=== PATIENT | female | born 1955 | race Caucasian/White ===

== ENCOUNTER 2016-04-26 12:07 | Inpatient (IN) | payer OTHER ==
[~2016-04-26] VITALS: Ht 162.6 cm; Wt 95.5 kg
[~2016-04-26 12:07] MED LIST: ADVAIR 500/501 DISK IH; ADVAIR HFA120 INHALA IH; ALPRAZOLAM0.25 M2 PO; ALTACE2.5 MG PO; ASPIR-LOW81 MG PO; ASPIRIN325 MG PO; ATORVASTATIN CA40 MG PO; ATROVENT 00.5 MG/2.5 IH; AUGMENTIN 875-1 EACH; AZOR 5/20 MG1 TABLET PO; Advair 500/50 Diskus IH; Augmentin PO; BENZONATATE100 MG PO; BROVANA15 MCG/2 M IH; CEFTIN500 MG PO; CEPHALEXIN500 MG PO; COMBIVENT200 INHALA IH; Combivent IH; DESYREL100 MG PO; DOXYCYCLINE HY100 MG PO; DUONEB 2.5-0.5 M3 ML AEROSOL; DUONEB 2.5-0.5 M3 ML IH; DuoNeb IH; ENDOCET 5-3251 EACH PO; EX-LAX15 MG PO; Ecotrin PO; FLORASTOR250 MG PO; FLOVENT 11120 INHALA IH; LAXATIVE5 M1 PO; LEVOFLOXACIN750 MG PO; LEXAPRO10 MG PO; LIPITOR40 MG PO; LO-DOSE ASPIRIN81 M1 PO; LOSARTAN POTASS50 MG PO; Levaquin PO; Lipitor PO; MUCINEX600 MG PO; NICOTINE PATCH1 EAC2 TD; OXYCODONE HCL10 MG PO; OXYCONTIN10 MG PO; OXYCONTIN15 MG PO; OxyCONTIN PO; PERCOCET 5/31 TABLET PO; PREDNISONE10 MG PO; PREDNISONE20 MG PO; PREDNISONE50 MG PO; PROAIR HFA8.5 GM IH; PROTONIX40 MG PO; Protonix PO; SINGULAIR10 MG PO; SPIRIVA RESPIMAT4 GM IH; Singulair PO; TRAMADOL HCL50 MG PO; TRAZODONE HCL100 MG PO; TRAZODONE HCL150 MG PO; Vancocin Oral Soluti PO; ZITHROMAX500 MG PO
[2016-04-26] MEDS ORDERED: TOBREX5 ML BOTH EYES (12:43)
[2016-04-26 14:53] LABS: CARBON DIOXIDE (BICARBONATE) 29.2 MEQ/L (20-31)
[2016-04-26 15:00] LABS: HEMATOCRIT 38.2 % (36.0-46.0); MCH 30.9 PG (29.0-34.0); MCHC 33.2 G/DL (30.0-36.0); MCV 92.9 FL (83-99); MEAN PLAT.VOLUME 9.4 uM^3 (9.5-12.4); PLATELET COUNT 190 K/uL (156-360); RBC DIS.WIDTH-CV 12.4 % (11.8-14.6); RBC DIS.WIDTH-SD 40.9 % (39-53); RED BLOOD COUNT 4.11 M/uL (3.80-5.20)
[2016-04-26 15:06] LABS: CHLORIDE 100 mEq/L (99-109); SODIUM 134 mEq/L (136-147)
[2016-04-26 15:07] LABS: GLUCOSE 177 mg/dL (70-99)
[2016-04-26 15:08] LABS: D-DIMER ELISA 0.49 mg/L FEU (< 0.57)
[2016-04-26 15:09] LABS: ANION GAP 11 MEQ/L (2-14)
[2016-04-26 15:11] LABS: GFR ESTIMATE (CALCULATED) > 59 mL/min/
[2016-04-26 15:12] LABS: UREA NITROGEN (BUN) 12 mg/dL (9-23)
[2016-04-26 15:19] LABS: TROP-I INTERPRETATION NEGATIVE; TROPONIN-I < 0.01 ng/mL (0.0-0.30)
[2016-04-26 16:40] LABS: ADD MIUA? YES; BILIRUBIN NEGATIVE; BLOOD TRACE; COLOR YELLOW ((YELLOW)); GLUCOSE (STRIP) NEGATIVE; KETONES TRACE; LEUKOCYTES NEGATIVE; NITRITE NEGATIVE; PROTEIN (STRIP) NEGATIVE; SPECIFIC GRAVITY 1.014 (1.000-1.030); UROBILINOGEN 0.2 MG/DL (0.2-1.0)
[2016-04-26 16:59] LABS: CASTS PRESENT /LPF; HYALINE CASTS 0-5 /LPF
[2016-04-26 17:01] LABS: BACTERIA RARE; CRYSTALS NONE SEEN; EPITHELIAL CELLS RARE; MUCUS RARE; RED BLOOD CELLS 0-5 /HPF (0-5); UCUL ADDED? NO; WHITE BLOOD CELLS 0-5 /HPF (0-5)
[2016-04-27] VITALS (7 sets, daily range): BP systolic 80–126; BP diastolic 30–78
[2016-04-27 05:03] LABS: INFLUENZA A VIRAL ANTIGEN NEGATIVE; INFLUENZA B VIRAL ANTIGEN NEGATIVE
[2016-04-27 06:23] LABS: HEMATOCRIT 36.8 % (36.0-46.0); MCH 30.6 PG (29.0-34.0); MCHC 32.6 G/DL (30.0-36.0); MCV 93.9 FL (83-99); MEAN PLAT.VOLUME 9.9 uM^3 (9.5-12.4); PLATELET COUNT 186 K/uL (156-360); RBC DIS.WIDTH-CV 12.5 % (11.8-14.6); RBC DIS.WIDTH-SD 42.8 % (39-53); RED BLOOD COUNT 3.92 M/uL (3.80-5.20); WHITE BLOOD COUNT 3.7 K/uL (4.1-10.2)
[2016-04-27 06:42] LABS: ANION GAP 8 MEQ/L (2-14); CHLORIDE 101 MEQ/L (99-109); GFR ESTIMATE (CALCULATED) > 59 mL/min/; GLUCOSE 146 mg/dL (70-99); SAMPLE HEMOLYSIS CHECK 0; SAMPLE ICTERIC CHECK 0; SAMPLE LIPEMIA CHECK 0; SODIUM 137 MEQ/L (136-147); UREA NITROGEN (BUN) 13 mg/dL (9-23)
[2016-04-27 06:49] LABS: POTASSIUM 4.9 MEQ/L (3.7-5.4)
[2016-04-28] VITALS: BP 102/53
[2016-04-28 03:50] VITALS: BP 107/53
[2016-04-28 08:14] LABS: INTERNAL CONTROL VALID? YES
[2016-04-28 08:37] VITALS: BP 137/63
[2016-04-28 12:12] VITALS: BP 130/66
[2016-04-28 14:56] VITALS: BP 152/82
[2016-04-29] VITALS (14 sets, daily range): BP systolic 130–168; BP diastolic 61–83
[2016-04-29 03:08] LABS: BASE EXCESS 3.8 mEq/L (-3 to +3); BICARBONATE 31.7 mEq/L (22-26); CARBOXY HGB 1.8 % (0-5); COMMENTS - BLOOD GASES C+A+; DEVICE NC; METHEMOGLOBIN 1.6 % (0-1.5); O2 FLOW 6 L/MIN; PCO2 63 mm Hg (35-45); PO2 89 mm Hg (80-100); SITE LR; pH 7.31 (7.35-7.45)
[2016-04-29 04:40] LABS: METH RESISTANT S AUREUS PCR NEGATIVE (NEGATIVE)
[2016-04-29 04:42] LABS: PROBE CHECK PASS; SPECIMEN PROCESSING CONTROL PASS
[2016-04-29 09:11] LABS: ANION GAP 8 MEQ/L (2-14); CHLORIDE 105 MEQ/L (99-109); MAGNESIUM 2.1 mg/dl (1.3-2.7); POTASSIUM 4.2 MEQ/L (3.7-5.4); SAMPLE HEMOLYSIS CHECK 0; SAMPLE ICTERIC CHECK 0; SAMPLE LIPEMIA CHECK 0; SODIUM 141 MEQ/L (136-147)
[2016-04-29 09:17] LABS: GFR ESTIMATE (CALCULATED) > 59 mL/min/; GLUCOSE 187 mg/dL (70-99); UREA NITROGEN (BUN) 15 mg/dL (9-23)
[2016-04-29 09:42] LABS: EOSINOPHIL (%) 1.6 % (0-5); EOSINOPHIL COUNT 0.1 K/uL (0-0.3); HEMATOCRIT 32.4 % (36.0-46.0); IMMATURE GRANULOCYTE (%) 1.1 % (0.0-0.7); IMMATURE GRANULOCYTE COUNT 0.1 K/uL; LYMPHOCYTE COUNT 0.8 K/uL (1.0-2.8); MCH 34.8 PG (29.0-34.0); MCHC 33.3 G/DL (30.0-36.0); MCV 104.5 FL (83-99); MEAN PLAT.VOLUME 9.2 uM^3 (9.5-12.4); MONOCYTE (%) 9.1 % (3-12); MONOCYTE COUNT 0.7 K/uL (0-0.8); NEUTROPHIL (%) 77.3 % (45-76); NEUTROPHIL COUNT 5.9 K/uL (1.8-6.4); PLATELET COUNT 533 K/uL (156-360); RBC DIS.WIDTH-SD 57.4 % (39-53); WHITE BLOOD COUNT 7.6 K/uL (4.1-10.2)
[2016-04-29 10:05] LABS: ADD MIUA? NO; BILIRUBIN NEGATIVE; BLOOD NEGATIVE; COLOR YELLOW ((YELLOW)); GLUCOSE (STRIP) NEGATIVE; KETONES NEGATIVE; LEUKOCYTES NEGATIVE; NITRITE NEGATIVE; PROTEIN (STRIP) NEGATIVE; SPECIFIC GRAVITY 1.015 (1.000-1.030); UROBILINOGEN 0.2 MG/DL (0.2-1.0)
[2016-04-29 10:12] LABS: UCUL ADDED? NO
[2016-04-30] VITALS (11 sets, daily range): BP systolic 115–159; BP diastolic 55–77
[2016-04-30 05:43] LABS: EOSINOPHIL (%) 0 % (0-5); HEMATOCRIT 36.1 % (36.0-46.0); IMMATURE GRANULOCYTE (%) 0.6 % (0.0-0.7); LYMPHOCYTE COUNT 0.8 K/uL (1.0-2.8); MCH 30.3 PG (29.0-34.0); MCHC 32.4 G/DL (30.0-36.0); MEAN PLAT.VOLUME 9.8 uM^3 (9.5-12.4); MONOCYTE (%) 6.3 % (3-12); MONOCYTE COUNT 0.4 K/uL (0-0.8); NEUTROPHIL (%) 81.6 % (45-76); NEUTROPHIL COUNT 5.7 K/uL (1.8-6.4); RBC DIS.WIDTH-CV 12.2 % (11.8-14.6); RBC DIS.WIDTH-SD 41.6 % (39-53)
[2016-04-30 05:46] LABS: MCV 93.5 FL (83-99); PLATELET COUNT 252 K/uL (156-360); RED BLOOD COUNT 3.86 M/uL (3.80-5.20)
[2016-04-30 05:59] LABS: ANION GAP 9 MEQ/L (2-14); CHLORIDE 99 MEQ/L (99-109); GFR ESTIMATE (CALCULATED) > 59 mL/min/; GLUCOSE 134 mg/dL (70-99); MAGNESIUM 2.3 mg/dl (1.3-2.7); POTASSIUM 3.8 MEQ/L (3.7-5.4); SAMPLE HEMOLYSIS CHECK 0; SAMPLE ICTERIC CHECK 0; SAMPLE LIPEMIA CHECK 0; SODIUM 143 MEQ/L (136-147); UREA NITROGEN (BUN) 15 mg/dL (9-23)
[2016-04-30 06:44] LABS: Estimated Average Glucose 120 mg/dL (70-123); HEMOGLOBIN A1c (GLYCOHEMOGLOB) 5.8 % HGB (Below 5.7)
[2016-04-30 06:57] LABS: INTERNAL CONTROL VALID? YES
[2016-05-01] VITALS (11 sets, daily range): BP systolic 108–148; BP diastolic 55–74
[2016-05-01 06:07] LABS: EOSINOPHIL (%) 0 % (0-5); HEMATOCRIT 36.9 % (36.0-46.0); IMMATURE GRANULOCYTE (%) 1.3 % (0.0-0.7); IMMATURE GRANULOCYTE COUNT 0.1 K/uL; LYMPHOCYTE COUNT 1.6 K/uL (1.0-2.8); MCH 30.3 PG (29.0-34.0); MCV 94.6 FL (83-99); MEAN PLAT.VOLUME 9.9 uM^3 (9.5-12.4); MONOCYTE (%) 6.2 % (3-12); MONOCYTE COUNT 0.6 K/uL (0-0.8); NEUTROPHIL (%) 75.2 % (45-76); NEUTROPHIL COUNT 6.8 K/uL (1.8-6.4); PLATELET COUNT 266 K/uL (156-360); RBC DIS.WIDTH-CV 12.2 % (11.8-14.6); RBC DIS.WIDTH-SD 41.8 % (39-53); WHITE BLOOD COUNT 9.1 K/uL (4.1-10.2)
[2016-05-01 06:35] LABS: ANION GAP 7 MEQ/L (2-14); CHLORIDE 99 MEQ/L (99-109); GFR ESTIMATE (CALCULATED) > 59 mL/min/; GLUCOSE 120 mg/dL (70-99); MAGNESIUM 2.4 mg/dl (1.3-2.7); SAMPLE HEMOLYSIS CHECK 0; SAMPLE ICTERIC CHECK 0; SAMPLE LIPEMIA CHECK 0; SODIUM 142 MEQ/L (136-147); UREA NITROGEN (BUN) 21 mg/dL (9-23)
[2016-05-01 11:29] LABS: BASE EXCESS 11.6 mEq/L (-3 to +3); BICARBONATE 38.3 mEq/L (22-26); CARBOXY HGB 1.6 % (0-5); COMMENTS - BLOOD GASES NAC+; METHEMOGLOBIN 1.4 % (0-1.5); PCO2 59 mm Hg (35-45); PO2 89 mm Hg (80-100); SITE RR; pH 7.42 (7.35-7.45)
[2016-05-01 11:30] LABS: DEVICE CANNULA; O2 FLOW 3 L/MIN
[2016-05-02] VITALS (11 sets, daily range): BP systolic 117–156; BP diastolic 59–83
[2016-05-02 05:30] LABS: EOSINOPHIL (%) 0.1 % (0-5); HEMATOCRIT 37.7 % (36.0-46.0); IMMATURE GRANULOCYTE (%) 1.6 % (0.0-0.7); IMMATURE GRANULOCYTE COUNT 0.2 K/uL; LYMPHOCYTE COUNT 2.2 K/uL (1.0-2.8); MCH 30.2 PG (29.0-34.0); MCHC 32.4 G/DL (30.0-36.0); MCV 93.3 FL (83-99); MEAN PLAT.VOLUME 9.3 uM^3 (9.5-12.4); MONOCYTE (%) 8.5 % (3-12); MONOCYTE COUNT 0.9 K/uL (0-0.8); NEUTROPHIL (%) 68.2 % (45-76); NEUTROPHIL COUNT 7.1 K/uL (1.8-6.4); PLATELET COUNT 261 K/uL (156-360); RBC DIS.WIDTH-SD 40.8 % (39-53); RED BLOOD COUNT 4.04 M/uL (3.80-5.20); WHITE BLOOD COUNT 10.5 K/uL (4.1-10.2)
[2016-05-02 06:01] LABS: ANION GAP 8 MEQ/L (2-14); CHLORIDE 98 MEQ/L (99-109); GFR ESTIMATE (CALCULATED) > 59 mL/min/; GLUCOSE 115 mg/dL (70-99); MAGNESIUM 2.3 mg/dl (1.3-2.7); POTASSIUM 3.9 MEQ/L (3.7-5.4); SAMPLE HEMOLYSIS CHECK 0; SAMPLE ICTERIC CHECK 0; SAMPLE LIPEMIA CHECK 0; SODIUM 138 MEQ/L (136-147); UREA NITROGEN (BUN) 19 mg/dL (9-23)
[2016-05-03 03:50] VITALS: BP 129/70
[2016-05-03 06:41] LABS: HEMATOCRIT 37.6 % (36.0-46.0); MCH 30.6 PG (29.0-34.0); MCHC 32.7 G/DL (30.0-36.0); MCV 93.5 FL (83-99); MEAN PLAT.VOLUME 9.6 uM^3 (9.5-12.4); PLATELET COUNT 255 K/uL (156-360); RBC DIS.WIDTH-SD 41.2 % (39-53); RED BLOOD COUNT 4.02 M/uL (3.80-5.20); WHITE BLOOD COUNT 10.2 K/uL (4.1-10.2)
[2016-05-03 06:52] LABS: EOSINOPHIL (%) 0.8 % (0-5); EOSINOPHIL COUNT 0.1 K/uL (0-0.3); IMMATURE GRANULOCYTE (%) 2.1 % (0.0-0.7); IMMATURE GRANULOCYTE COUNT 0.2 K/uL; LYMPHOCYTE COUNT 2.5 K/uL (1.0-2.8); MONOCYTE (%) 7.6 % (3-12); MONOCYTE COUNT 0.8 K/uL (0-0.8); NEUTROPHIL (%) 65.4 % (45-76); NEUTROPHIL COUNT 6.7 K/uL (1.8-6.4)
[2016-05-03 07:18] LABS: ANION GAP 4 MEQ/L (2-14); CHLORIDE 98 MEQ/L (99-109); GFR ESTIMATE (CALCULATED) > 59 mL/min/; GLUCOSE 105 mg/dL (70-99); MAGNESIUM 2.2 mg/dl (1.3-2.7); POTASSIUM 4.1 MEQ/L (3.7-5.4); SAMPLE HEMOLYSIS CHECK 0; SAMPLE ICTERIC CHECK 0; SAMPLE LIPEMIA CHECK 0; SODIUM 137 MEQ/L (136-147); UREA NITROGEN (BUN) 19 mg/dL (9-23)
[2016-05-03 08:06] VITALS: BP 150/69
[2016-05-03 08:08] LABS: HEMATOLOGY COMMENT 1 SMEAR COMPATIBLE; USER ID CL
[2016-05-03 11:19] VITALS: BP 131/58
[2016-05-03 16:00] VITALS: BP 107/56
[2016-05-03 23:19] VITALS: BP 111/67
[2016-05-04 06:49] LABS: HEMATOCRIT 38.2 % (36.0-46.0); MCH 30.6 PG (29.0-34.0); MCHC 32.7 G/DL (30.0-36.0); MCV 93.6 FL (83-99); MEAN PLAT.VOLUME 9.5 uM^3 (9.5-12.4); PLATELET COUNT 267 K/uL (156-360); RBC DIS.WIDTH-CV 12.1 % (11.8-14.6); RBC DIS.WIDTH-SD 41.3 % (39-53); RED BLOOD COUNT 4.08 M/uL (3.80-5.20); WHITE BLOOD COUNT 11.3 K/uL (4.1-10.2)
[2016-05-04 07:06] LABS: EOSINOPHIL (%) 0.9 % (0-5); EOSINOPHIL COUNT 0.1 K/uL (0-0.3); IMMATURE GRANULOCYTE (%) 2.6 % (0.0-0.7); IMMATURE GRANULOCYTE COUNT 0.3 K/uL; LYMPHOCYTE COUNT 2.6 K/uL (1.0-2.8); MONOCYTE (%) 8.4 % (3-12); NEUTROPHIL (%) 65.1 % (45-76); NEUTROPHIL COUNT 7.4 K/uL (1.8-6.4)
[2016-05-04 07:13] LABS: ANION GAP 4 MEQ/L (2-14); CHLORIDE 98 MEQ/L (99-109); GFR ESTIMATE (CALCULATED) > 59 mL/min/; GLUCOSE 92 mg/dL (70-99); MAGNESIUM 2.4 mg/dl (1.3-2.7); POTASSIUM 4.4 MEQ/L (3.7-5.4); SAMPLE HEMOLYSIS CHECK 0; SAMPLE ICTERIC CHECK 0; SAMPLE LIPEMIA CHECK 0; SODIUM 139 MEQ/L (136-147); UREA NITROGEN (BUN) 17 mg/dL (9-23)
[2016-05-04 07:43] LABS: HEMATOLOGY COMMENT 1 SMEAR COMPATIBLE; PLAT.SUFFICIENCY ADEQUATE; USER ID TLW
[2016-05-04 08:17] VITALS: BP 116/74
[2016-05-04 11:45] VITALS: BP 110/65
[2016-05-04] MEDS ORDERED: CEFTIN500 MG PO (12:48)
[2016-05-04] MEDS ORDERED: PREDNISONE10 MG PO (12:49)
[2016-05-04] MEDS ORDERED: ADVAIR HFA120 INHALA IH (12:49)
[2016-05-04] MEDS ORDERED: ATIVAN0.5 MG PO (12:50)
== END 2016-05-04 14:41 | disposition home or self-care (01) | DRG 189 ==
LOC: EME 12:07 → EDOF 17:00 → 4WEST 17:00 → 4SOUTH 04-27 07:55 → 4WEST 04-29 03:20 → 2EAST 05-02 17:35
PROVIDERS: Emergency Medicine; Hospitalist; Internal Medicine; Internal Medicine Critical Care Medicine; Internal Medicine Nephrology
DX: J96.22 Acute and chronic respiratory failure with hypercapnia (principal); J96.21 Acute and chronic respiratory failure with hypoxia; J18.9 Pneumonia, unspecified organism; J44.1 Chronic obstructive pulmonary disease with (acute) exacerbation; I50.30 Unspecified diastolic (congestive) heart failure; I25.10 Atherosclerotic heart disease of native coronary artery without angina pectoris; I10 Essential (primary) hypertension; F32.9 Major depressive disorder, single episode, unspecified; F41.9 Anxiety disorder, unspecified; G89.29 Other chronic pain; E78.5 Hyperlipidemia, unspecified; K21.9 Gastro-esophageal reflux disease without esophagitis; R53.1 Weakness; I25.2 Old myocardial infarction; M79.7 Fibromyalgia; G35 Multiple sclerosis; F17.200 Nicotine dependence, unspecified, uncomplicated; B30.9 Viral conjunctivitis, unspecified; Z86.73 Personal history of transient ischemic attack (TIA), and cerebral infarction without residual deficits; Z99.81 Dependence on supplemental oxygen
CPT/HCPCS: 36600; 71010; 71020; 80048; 81003; 82803; 83036; 83605; 83735; 83880; 84100; 84484; 85025; 85027; 85379; 87040; 87086; 87449; 87502; 87641; 93005; 94002; 94003; 94640; 94640 76; 94644; 94760; 94799; 99202; 99281; 99285; J0456; J0696; J1100; J1650; J1815; J1940; J1956; J2060; J2920; J2930; J7030; J7050; J7512; J7644

== ENCOUNTER 2016-12-09 18:27 | Inpatient (IN) | payer OTHER ==
[~2016-12-09] VITALS: Ht 162.6 cm; Wt 87.7 kg
[~2016-12-09 18:27] MED LIST changes: +ATIVAN0.5 MG PO; -OXYCODONE HCL10 MG PO; +OXYCODONE HCL15 MG PO; +TOBREX5 ML BOTH EYES
[2016-12-09 19:16] LABS: BASOPHIL COUNT 0.1 K/uL (0-0.1); EOSINOPHIL (%) 1.4 % (0-5); EOSINOPHIL COUNT 0.2 K/uL (0-0.3); HEMATOCRIT 40.8 % (36.0-46.0); IMMATURE GRANULOCYTE (%) 0.4 % (0.0-0.7); IMMATURE GRANULOCYTE COUNT 0.1 K/uL; INSTRUMENT ABS NEUTROPHIL CT 10.5 K/uL; LYMPHOCYTE COUNT 2.5 K/uL (1.0-2.8); MCH 30.6 PG (29.0-34.0); MCHC 32.4 G/DL (30.0-36.0); MCV 94.4 FL (83-99); MEAN PLAT.VOLUME 9.2 uM^3 (9.5-12.4); MONOCYTE (%) 8.4 % (3-12); MONOCYTE COUNT 1.2 K/uL (0-0.8); NEUTROPHIL (%) 71.9 % (45-76); NEUTROPHIL COUNT 10.5 K/uL (1.8-6.4); PLATELET COUNT 283 K/uL (156-360); RBC DIS.WIDTH-CV 12.4 % (11.8-14.6); RBC DIS.WIDTH-SD 43.4 % (39-53); RED BLOOD COUNT 4.32 M/uL (3.80-5.20); WHITE BLOOD COUNT 14.6 K/uL (4.1-10.2)
[2016-12-09 19:38] LABS: CHLORIDE 101 mEq/L (99-109); POTASSIUM 3.2 mEq/L (3.7-5.4); SODIUM 139 mEq/L (136-147)
[2016-12-09 19:40] LABS: GLUCOSE 136 mg/dL (70-99)
[2016-12-09 19:41] LABS: ANION GAP 10 MEQ/L (2-14)
[2016-12-09 19:42] LABS: TOTAL BILIRUBIN 1.2 mg/dL (0.0-1.0)
[2016-12-09 19:43] LABS: ALKALINE PHOSPHATASE 93 IU/L (3-129)
[2016-12-09 19:44] LABS: GFR ESTIMATE (CALCULATED) > 59 mL/min/
[2016-12-09 19:45] LABS: UREA NITROGEN (BUN) 11 mg/dL (9-23)
[2016-12-09 19:48] LABS: TROP-I INTERPRETATION NEGATIVE; TROPONIN-I < 0.01 ng/mL (0.0-0.30)
[2016-12-09 21:43] LABS: BASE EXCESS 3.2 mEq/L (-3 to +3); BICARBONATE 29.5 mEq/L (22-26); CARBOXY HGB 4.4 % (0-5); COMMENTS - BLOOD GASES A+C+; DEVICE MA; O2 FLOW 6 L/MIN; PCO2 51 mm Hg (35-45); PO2 160 mm Hg (80-100); SITE RR; TOTAL RESP RATE 20 resp/min; pH 7.37 (7.35-7.45)
[2016-12-09] MEDS ORDERED: SPIRIVA RESPIMAT4 GM IH (22:08)
[2016-12-09] MEDS ORDERED: PREDNISONE10 MG PO (22:09)
[2016-12-09] MEDS ORDERED: PROAIR HFA8.5 GM IH (22:10)
[2016-12-09] MEDS ORDERED: COLACE100 MG PO (22:10)
[2016-12-10 02:46] VITALS: BP 129/68
[2016-12-10 05:04] LABS: HEMATOCRIT 38.1 % (36.0-46.0); MCH 31.2 PG (29.0-34.0); MCHC 32.8 G/DL (30.0-36.0); MEAN PLAT.VOLUME 9.7 uM^3 (9.5-12.4); PLATELET COUNT 266 K/uL (156-360); RBC DIS.WIDTH-CV 12.3 % (11.8-14.6); RBC DIS.WIDTH-SD 43.1 % (39-53); RED BLOOD COUNT 4.01 M/uL (3.80-5.20); WHITE BLOOD COUNT 10.8 K/uL (4.1-10.2)
[2016-12-10 06:03] LABS: ANION GAP 10 MEQ/L (2-14); CHLORIDE 102 MEQ/L (99-109); GFR ESTIMATE (CALCULATED) > 59 mL/min/; GLUCOSE 189 mg/dL (70-99); SAMPLE HEMOLYSIS CHECK 0; SAMPLE ICTERIC CHECK 0; SAMPLE LIPEMIA CHECK 0; SODIUM 141 MEQ/L (136-147); UREA NITROGEN (BUN) 11 mg/dL (9-23)
[2016-12-10 06:07] LABS: POTASSIUM 4.2 MEQ/L (3.7-5.4)
[2016-12-10 08:00] VITALS: BP 122/72
[2016-12-10 12:21] VITALS: BP 115/70
[2016-12-10 16:00] VITALS: BP 111/83
[2016-12-10 19:38] VITALS: BP 113/57
[2016-12-10 23:42] VITALS: BP 134/64
[2016-12-11 04:50] VITALS: BP 108/58
[2016-12-11 05:45] LABS: HEMATOCRIT 38.8 % (36.0-46.0); MCH 30.4 PG (29.0-34.0); MCHC 31.7 G/DL (30.0-36.0); MCV 95.8 FL (83-99); MEAN PLAT.VOLUME 9.3 uM^3 (9.5-12.4); PLATELET COUNT 284 K/uL (156-360); RBC DIS.WIDTH-SD 42.1 % (39-53); RED BLOOD COUNT 4.05 M/uL (3.80-5.20); WHITE BLOOD COUNT 17.4 K/uL (4.1-10.2)
[2016-12-11 06:07] LABS: ANION GAP 4 MEQ/L (2-14); CHLORIDE 105 MEQ/L (99-109); GFR ESTIMATE (CALCULATED) > 59 mL/min/; GLUCOSE 147 mg/dL (70-99); POTASSIUM 5.2 MEQ/L (3.7-5.4); SAMPLE HEMOLYSIS CHECK 0; SAMPLE ICTERIC CHECK 0; SAMPLE LIPEMIA CHECK 0; SODIUM 143 MEQ/L (136-147); UREA NITROGEN (BUN) 15 mg/dL (9-23)
[2016-12-11 08:30] VITALS: BP 116/56
[2016-12-11 12:06] VITALS: BP 110/58
[2016-12-11 15:34] VITALS: BP 105/56
[2016-12-11 19:15] VITALS: BP 143/66
[2016-12-11 23:42] VITALS: BP 137/64
[2016-12-12 04:50] VITALS: BP 138/72
[2016-12-12 06:57] LABS: HEMATOCRIT 37.5 % (36.0-46.0); MCH 30.5 PG (29.0-34.0); MCV 95.2 FL (83-99); MEAN PLAT.VOLUME 9.5 uM^3 (9.5-12.4); PLATELET COUNT 277 K/uL (156-360); RBC DIS.WIDTH-CV 11.9 % (11.8-14.6); RBC DIS.WIDTH-SD 41.6 % (39-53); RED BLOOD COUNT 3.94 M/uL (3.80-5.20); WHITE BLOOD COUNT 14.2 K/uL (4.1-10.2)
[2016-12-12 07:20] LABS: ANION GAP 5 MEQ/L (2-14); CHLORIDE 103 MEQ/L (99-109); GFR ESTIMATE (CALCULATED) > 59 mL/min/; GLUCOSE 133 mg/dL (70-99); POTASSIUM 4.7 MEQ/L (3.7-5.4); SAMPLE HEMOLYSIS CHECK 0; SAMPLE ICTERIC CHECK 0; SAMPLE LIPEMIA CHECK 0; SODIUM 142 MEQ/L (136-147); UREA NITROGEN (BUN) 16 mg/dL (9-23)
[2016-12-12 08:00] VITALS: BP 114/55
[2016-12-12] MEDS ORDERED: AMLODIPINE BESYL5 MG PO (09:14)
[2016-12-12] MEDS ORDERED: MEDROL DOSEPAK4 MG PO (09:17)
[2016-12-12] MEDS ORDERED: PREDNISONE20 MG PO (09:17)
[2016-12-12] MEDS ORDERED: LEVAQUIN500 MG PO (09:21)
[2016-12-12 12:00] VITALS: BP 131/61
[2016-12-12 15:56] VITALS: BP 147/65
[2016-12-12 20:13] VITALS: BP 130/64
[2016-12-13 02:11] VITALS: BP 125/65
[2016-12-13 02:47] VITALS: BP 129/80
[2016-12-13 07:28] VITALS: BP 147/74
== END 2016-12-13 13:42 | disposition home health service (06) | DRG 189 ==
LOC: EME 18:27 → 5SOUTH 22:59 → 4EAST 22:59 → EDOF 22:59 → ENRESERV 23:00 → 4EAST 12-10 02:18 → ENRESERV 12-12 22:24 → ENPENDDIS 12-13 → 5SOUTH 12-13 02:29
PROVIDERS: Emergency Medicine; Hospitalist; Internal Medicine
DX: J96.21 Acute and chronic respiratory failure with hypoxia (principal); J18.9 Pneumonia, unspecified organism; J44.0 Chronic obstructive pulmonary disease with (acute) lower respiratory infection; F33.9 Major depressive disorder, recurrent, unspecified; F11.20 Opioid dependence, uncomplicated; E87.5 Hyperkalemia; Z99.81 Dependence on supplemental oxygen; F43.23 Adjustment disorder with mixed anxiety and depressed mood; J44.1 Chronic obstructive pulmonary disease with (acute) exacerbation; G35 Multiple sclerosis; M79.7 Fibromyalgia; K21.9 Gastro-esophageal reflux disease without esophagitis; I25.10 Atherosclerotic heart disease of native coronary artery without angina pectoris; I25.2 Old myocardial infarction; I10 Essential (primary) hypertension; G89.4 Chronic pain syndrome; Z91.19 Patient's noncompliance with other medical treatment and regimen; J20.9 Acute bronchitis, unspecified; E78.5 Hyperlipidemia, unspecified; T38.0X5A Adverse effect of glucocorticoids and synthetic analogues, initial encounter; D72.829 Elevated white blood cell count, unspecified; Z82.0 Family history of epilepsy and other diseases of the nervous system; Z82.49 Family history of ischemic heart disease and other diseases of the circulatory system; Z90.49 Acquired absence of other specified parts of digestive tract; Z96.659 Presence of unspecified artificial knee joint; K44.9 Diaphragmatic hernia without obstruction or gangrene; N28.1 Cyst of kidney, acquired; D35.02 Benign neoplasm of left adrenal gland; J96.22 Acute and chronic respiratory failure with hypercapnia; F17.200 Nicotine dependence, unspecified, uncomplicated; Z86.73 Personal history of transient ischemic attack (TIA), and cerebral infarction without residual deficits; Z87.01 Personal history of pneumonia (recurrent)
CPT/HCPCS: 36600; 71010; 71275; 80048; 80053; 82803; 83605; 83880; 84484; 85025; 85027; 85379; 87040; 87070; 87205; 93005; 94640; 94640 76; 94644; 94799; 99202; 99281; 99285; J0696; J1100; J1650; J2920; J2930; J7050; J7644